=== PATIENT | male | born 1970 | race Caucasian/White ===

== ENCOUNTER 2024-06-09 22:36 | Emergency (ER) | payer OTHER, SELFPAY ==
[2024-06-09 22:38] VITALS: BP 174/88
[2024-06-09 23:00] VITALS: BP 190/84
[2024-06-09 23:03] VITALS: BMI 41.9
[2024-06-10] MEDS: NSS 1000 IV (00:12)
[2024-06-10] MEDS: TORADOL 15 MG IV (00:13)
[2024-06-10] MEDS: DILAUDID 0.5 MG IV ×2 (00:15→01:52)
[2024-06-10 00:17] VITALS: BP 150/80
--- NOTE | 2024-06-10 00:31 | ED.GENMED ---
History of Present Illness
General
Chief Complaint: Generalized Pain
Source: patient
Exam Limitations: none
Time Seen by Provider: 06/09/24 22:59
Nursing documentation reviewed up to this point in time: agreed with
History of Present Illness
History of Present Illness:
Patient with history of hypertension, hypercholesterolemia, and diabetes, as well as with diabetic neuropathy, presents ED secondary to sudden onset of generalized body ache and weakness, shortly after dinner. Patient also experienced 4 episodes of
nonbloody diarrhea. Patient feels thirsty. Denies headache. Denies dizziness. Denies fever or chills. Denies abdominal pain. Patient reports nausea without vomiting. Denies recent illness. Denies recent change in medications or diet.
Patient states initially had similar episode approxi-1 year ago, when he was evaluated in ED and was treated for dehydration.
Past History
Past History
ED Past Medical History: HTN, Hypercholesterolemia, NIDDM and Other (Kidney stones, neuropathy, left Charcot foot)
ED Past Surgical History: Urological and Other (Renal stent )
Social History
Tobacco: Non-smoker
Alcohol: None
Drug: None
Personal: Other ()
Living: with family
Employment: Employed
Review of Systems
Review of Systems
Allergies reviewed?: Yes
All Other Systems: ROS reviewed and negative except as documented in HPI and ROS
Constitutional: Reports no symptoms
EENT: Reports no symptoms
Respiratory: Reports no symptoms
Cardiac: Reports no symptoms
ABD/GI: Reports nausea and diarrhea; Denies abdominal pain or vomiting
Musculoskeletal: Reports muscle pain
Skin: Reports no symptoms
Neurological: Reports weakness; Denies dizzy or headache
Phy Exam
Physical Exam
Physical Exam:
Physical Exam
General: mild distress, not acutely ill. afebrile
Head: nc/at. eomi
Neck: supple. no meningeal signs.
Heart: s1/s2 regular rate and rhythm, no murmur. equal radial pulses.
Lungs: no acute respiratory distress. clear bilaterally
Abdomen: normal bowel sounds. not tender.
Neuro: alert and oriented. no focal neurological deficits
Skin: no rash
Psychiatric: well kept. interactive and cooperative
Extremities: no edema. no calf tenderness.
Course
Orders/Labs/Results
Orders:
Orders
06/09/24 23:58
CPK [Creatine Phosphokinase] Urgent
Complete Blood Count/No Diff Urgent
Comprehensive Metabolic Panel Urgent
Magnesium Urgent
0.9% Sodium Chloride 1000 ml [Nss] 1,000 ml IV BOLUS
HYDROmorphone [Dilaudid] 0.5 mg IV NOW STA
Ketorolac [Toradol] 15 mg IV NOW STA
06/10/24 01:43
0.9% Sodium Chloride 500 ml [Nss] 500 ml IV BOLUS
HYDROmorphone [Dilaudid] 0.5 mg IV NOW STA
Abnormal Lab Results
06/10/24
00:12
Hgb 18.1 H g/dL
(13.0-18.0)
MPV 11.5 H fL
(7.4-10.4)
BUN 24 H mg/dl
(9-20)
Glucose 212 H mg/dl
(70-99)
06/10/24 00:12
06/10/24 00:12
Vital Signs
Initial and Last Documented VS:
Initial Vital Signs
Temp Pulse Resp BP Pulse Ox
100.0 F 94 20 174/88 98
06/09/24 22:38 06/09/24 22:38 06/09/24 22:38 06/09/24 22:38 06/09/24 22:38
Last Documented Vital Signs
Temp Pulse Resp BP Pulse Ox
99.8 F 78 16 141/73 94
06/09/24 23:00 06/10/24 02:40 06/10/24 02:40 06/10/24 02:40 06/10/24 02:40
MDM/Problems Addressed
MDM/Problems Addressed:
History and exam consistent with likely mild dehydration, precipitated by nonspecific diarrhea, likely viral in nature versus acute food reaction. Otherwise, patient remains afebrile, hemodynamically stable, and nontoxic-appearing during
observation. Patient reports improvement symptoms after treatment. As such, patient will be discharged home in stable condition, to the care of of his family, with recommendation to continue hydration at home, along with PCP follow-up as an
outpatient.
*Critical Care Note
Total Time (30-74mins, 75-104mins- exclusive of procedures): Not Applicable
ED Attending Note
-
Portions of this chart may have been created with voice recognition software.� Occasional wrong word or��sound alike� substitutions may have occurred due to the inherent limitations of voice recognition software.
Discharge Plan
Departure
Patient Disposition: Home (Routine Discharge)
Date of Disposition: 06/10/24
Time of Disposition: 01:44
Patient with high blood pressure during this ER visit?: Yes
Condition: Good
Discharge Problem:
Dehydration, Diarrhea
Instructions: Diarrhea, Adult ED, Dehydration, Adult ED
Prescriptions:
No Action
insulin aspart U-100 [Novolog FlexPen U-100 Insulin] 300 UNITS/3 ML insulin pen
0 units SC AC PRN (Reason: elevated BS)
Patient Comments:
sliding scale
insulin detemir U-100 [Levemir FlexTouch U100 Insulin] 300 UNIT/3 ML insulin pen
40 unit SC DAILY@2200
dapagliflozin propanediol [Farxiga] 10 MG tablet
10 mg PO DAILY
pregabalin 75 MG capsule
75 mg PO BID
Keflex:
500 mg PO BID
Potassium Citrate
1 tab PO BID
valsartan 80 MG tablet
80 mg PO DAILY Qty: 30 6RF
aspirin [Aspir-Low] 81 MG tablet,delayed release (DR/EC)
81 mg PO DAILY Qty: 0 0RF
atorvastatin 40 MG tablet
40 mg PO QPM Qty: 30 6RF
oseltamivir [Tamiflu] 75 mg capsule
75 mg PO BID Qty: 10 0RF
Referrals:
Diaz Gomez DO [Family Provider] -
Activity Restrictions/Additional Instructions:
As discussed, please follow-up with your primary care physician with any further concerns.
Interventions
Interventions:
*Risk Screen - Suicide Last Done: 06/09/24 22:53
*General Assessment Last Done: 06/09/24 22:42
*Neglect/Abuse Screening Last Done: 06/09/24 22:42
ED- Fall Risk Assessment Last Done: 06/09/24 22:53
*ED COVID-19 Vaccine History Last Done: 06/09/24 22:53
*Nursing Disposition Last Done: 06/10/24 02:40
Discharge Date and Time
Discharge Date/Time: 06/10/24 02:40
Print Language: PALEST[place]IAN
[2024-06-10 00:47] LABS: Hematocrit 51.5 % (39.0-52.0); Hemoglobin 18.1 g/dL (13.0-18.0); Mean Corp Hgb Conc. 35.1 g/dL (33.0-37.0); Mean Corpuscular Hgb 30.9 pg (27.0-31.0); Mean Corpuscular Volume 87.9 fL (80.0-94.0); Mean Platelet Volume 11.5 fL (7.4-10.4); Platelet Count 142 10^3/uL (130-400); Red Blood Cell Count 5.86 10^6/uL (4.70-6.10); Red Cell Dist. Width 12.5 % (11.5-14.5); White Blood Cell Count 8.2 10^3/uL (4.8-10.8)
[2024-06-10 00:58] LABS: ALT (SGPT) 35 U/L (0-50); AST (SGOT) 32 U/L (17-59); Albumin 4.5 g/dl (3.5-5.0); Alkaline Phosphatase 97 U/L (38-126); Blood Urea Nitrogen 24 mg/dl (9-20); Calcium 9.1 mg/dl (8.4-10.2); Carbon Dioxide 25 mmol/L (22-30); Chloride 105 mmol/L (98-107); Creatine Phosphokinase 100 U/L (55-170); Estimated Creatinine Clearance 111 ml/min; Glucose 212 mg/dl (70-99); Potassium 4.9 mmol/L (3.5-5.1); Sodium 140 mmol/L (135-145); Total Bilirubin 0.8 mg/dl (0.2-1.3); Total Protein 6.9 g/dl (6.3-8.2); eGFR > 60.00
[2024-06-10] MEDS: NSS 500 IV (01:51)
[2024-06-10 02:00] VITALS: BP 162/82
[2024-06-10 02:40] VITALS: BP 141/73
== END 2024-06-10 02:40 | disposition home or self-care (01) ==
LOC: EMR 22:36
PROVIDERS: EMERGENCY PHYSICIAN Emergency Medicine; FAMILY PHYSICIAN Family Medicine
DX: E86.0 Dehydration (principal); R19.7 Diarrhea, unspecified; E78.00 Pure hypercholesterolemia, unspecified; E11.40 Type 2 diabetes mellitus with diabetic neuropathy, unspecified; I10 Essential (primary) hypertension; Z87.442 Personal history of urinary calculi
CPT/HCPCS: 99283; 96374; 96375; 96376; 96361; 80053; 82550; 83735; 85027

== ENCOUNTER → 2024-10-27 17:33 | Outpatient (REF) | payer OTHER, SELFPAY | LOC: DHSLP 17:33 | PROVIDERS: ATTENDING PHYSICIAN Otolaryngology; FAMILY PHYSICIAN Family Medicine | DX: G47.33 Obstructive sleep apnea (adult) (pediatric) (principal); G47.00 Insomnia, unspecified; G47.61 Periodic limb movement disorder | CPT/HCPCS: 95811 ==